=== PATIENT | male | born 1985 | race African-American/Black ===

== ENCOUNTER 2025-04-26 07:04 | Emergency (ER) | payer MEDICAID ==
[~2025-04-26] VITALS: Ht 165.1 cm; Wt 54.8 kg
[2025-04-26 07:28] VITALS: O2SAT 100
[2025-04-26 07:42] LABS: BASOPHILS % 0.4 % (0.0-2.0); EOSINOPHILS % 1.0 % (0.0-5.0); HEMATOCRIT. 36.3 % (42.0-52.0); HEMOGLOBIN. 12.3 g/dL (14.0-18.0); LYMPHOCYTES % 25.5 % (20.0-50.0); MEAN PLATELET VOLUME 9.8 fl (7.4-10.4); MONOCYTES % 11.4 % (2.0-8.0); NEUTROPHILS % 61.7 % (40.0-76.0); PLATELET 146 x1000/uL (130-400); RED BLOOD CELL COUNT 3.59 mill/uL (4.7-6.1); RED CELL DISTRIBUTION WIDTH 15.3 % (11.6-14.6)
[2025-04-26 08:00] LABS: CREATININE 0.8 mg/dL (0.6-1.3)
[2025-04-26 08:01] LABS: UREA NITROGEN BLOOD < 5 mg/dL (9-23)
[2025-04-26] MEDS: ONDANSETRON HCL 4MG TABLET PO ONE (08:15)
[2025-04-26] MEDS: IBUPROFEN 800MG TABLET PO ONE (08:15)
[2025-04-26] MEDS ORDERED: IBUP-2028 PO (08:47)
[2025-04-26] MEDS ORDERED: ONDA4TAB50 PO (08:48)
[2025-04-26 08:58] VITALS: BP 97/67; PULSE 88; RESP 16; TEMP 36.8; O2SAT 100
== END 2025-04-26 09:01 | disposition home or self-care (01) ==
LOC: ER 07:04
DX: M51.372 Other intervertebral disc degeneration, lumbosacral region with discogenic back pain and lower extremity pain (principal); R11.2 Nausea with vomiting, unspecified; Z98.890 Other specified postprocedural states
CPT/HCPCS: 99284; 80048; 85025; 36415; 72100; Q0162